=== PATIENT | female | born 1945 | race Caucasian/White ===

== ENCOUNTER 2021-03-18 05:42 | Day surgery (SDC) | payer MEDICARE, OTHER ==
[~2021-03-18] VITALS: Ht 170 cm; Wt 86.0 kg
[~2021-03-18 05:42] MED LIST: ATENOLOL25 M1 PO; CITALOPRAM HBR20 MG PO; ELIQUIS5 MG PO; LOSARTAN-HCTZ1 EAC2 PO; MAG-OXIDE 400M400 MG PO; METFORMIN HCL500 M1 PO
[2021-03-19 07:08] LABS: BASOPHIL 0.3 % (0-2); EOSINOPHIL 0.3 % (0-7); HCT 34.8 % (37.0-47.0); LYMPHOCYTE 21.4 % (15-48); MCH 27.4 pg (25.0-31.0); MCHC 31.6 g/dL (32.0-36.0); MCV 86.8 fL (78.0-100.0); MPV 9.9 fL (6.0-9.5); NEUTROPHIL 67.6 % (41-80); NRBC 0; PLT 196 K/uL (150-400); RBC 4.01 M/uL (4.20-5.40); RDW 13.3 % (11.5-14.0); WBC 11.9 K/uL (4.0-10.5)
[2021-03-19 07:38] LABS: BUN/CREAT RATIO (CALC) 29.1 RATIO; CREATININE 0.55 mg/dL (0.51-0.95)
[2021-03-19] MEDS ORDERED: OXYCODONE-ACET1 EAC1 PO (08:37)
[2021-03-19] MEDS ORDERED: FEOSOL325 MG PO (08:37)
--- NOTE | 2021-03-19 10:05 | NUR ---
PT. D/C HOME THIS DATE. [facility] DELIVERED A RW, PT. REQUESTED [facility]. PT. SIGNED A CHOICE FORM AND COPY GIVEN.
== END 2021-03-19 11:50 | disposition home or self-care (01) ==
LOC: FAS 05:42 → FOFB 08:34 → FAS 03-19 11:50
PROVIDERS: Legal Medicine
DX: M17.11 Unilateral primary osteoarthritis, right knee (principal); M21.161 Varus deformity, not elsewhere classified, right knee; M25.761 Osteophyte, right knee; I48.91 Unspecified atrial fibrillation; I10 Essential (primary) hypertension; E11.9 Type 2 diabetes mellitus without complications; Z79.01 Long term (current) use of anticoagulants; Z90.49 Acquired absence of other specified parts of digestive tract; Z98.51 Tubal ligation status; Z88.5 Allergy status to narcotic agent; Z88.2 Allergy status to sulfonamides
CPT/HCPCS: 36415; 73560; 80048; 85025; 86850; 86900; 86901; 94010; 97162; 97166; 97530-GP; 97535; C1713; C1776; J0171; J0697; J1100; J1170; J1885; J2250; J2405; J2704; J2795; J3010; J7120